=== PATIENT | male | born 1965 | race Caucasian/White ===

== ENCOUNTER 2017-04-15 03:38 | Emergency (ER) | payer OTHER ==
[~2017-04-15] VITALS: Ht 198.1 cm; Wt 122.3 kg
[2017-04-15 04:05] VITALS: TEMP 36.8; Ht 198.1 cm; Wt 122.3 kg
[2017-04-15] MEDS ORDERED: ATOR-22 PO (04:25)
[2017-04-15] MEDS ORDERED: PRLSR20 PO (04:26)
[2017-04-15] MEDS ORDERED: CMD/25 PO (04:27)
[2017-04-15] MEDS ORDERED: WARF5TAB90 PO (04:29)
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
[2017-04-15 05:32] VITALS: BP 127/88; PULSE 62; O2SAT 94
== END 2017-04-15 05:38 | disposition home or self-care (01) ==
LOC: C.EDB 03:40 → C.EDA 05:38
DX: R51 Headache (principal); Z79.01 Long term (current) use of anticoagulants; Z79.899 Other long term (current) drug therapy; V89.2XXA Person injured in unspecified motor-vehicle accident, traffic, initial encounter